=== PATIENT | female | born 1985 | race Caucasian/White ===

== ENCOUNTER 2019-05-23 14:57 | Emergency (ER) | payer OTHER ==
[2019-05-23] MEDS: DIPHTH/TET/ACEL PERTUSS (ADULT) 0.5 ML VIAL IM* (15:39)
[2019-05-23] MEDS: LIDOCAINE 2%/EPI MPF (SDV) 20 ML VIAL INJ (15:39)
== END 2019-05-23 16:41 ==
LOC: E/R 14:57
DX: S81.811A Laceration without foreign body, right lower leg, initial encounter (principal); F15.10 Other stimulant abuse, uncomplicated; W25.XXXA Contact with sharp glass, initial encounter; Y92.89 Other specified places as the place of occurrence of the external cause; Z23 Encounter for immunization
CPT/HCPCS: 12002; 73590; 90471; 90715; 99283-25